=== PATIENT | female | born 1955 | race Caucasian/White ===

== ENCOUNTER 2016-05-27 21:41 | Emergency (ER) | payer OTHER ==
[2016-05-27 21:51] VITALS: BP 131/87; PULSE 82; RESP 16; TEMP 98.8; O2SAT 98
--- NOTE | 2016-05-27 22:40 | EDPHY ---
H & P Stated Complaint: preexisting L leg rash getting worse, unable to reach dermo for steroid ref Time Seen by Provider: 05/27/16 22:16 HPI/ROS: Chief Complaint: Leg lesions and itching HPI: 61-year-old woman with a history of chronic dermatitis and leg itching presenting with worsening excoriations and itching of her left leg. Patient states that she has run out of her triamcinolone ointment. She states that she has this is all stems from an incidental when she was exposed to bleach on her hands several years ago. She currently does see a presentation manager but has been unable to get in to get a refill of her prescription. She says she has had increasing itching despite topical treatments. It is not the worst it has ever been. No fevers or chills. No tracking up her leg. ROS: 10 point Review of Systems is negative except as noted in the HPI. PMH: Chronic dermatitis Social History: No smoking, no alcohol, no recreational drug use Family History: non-contributory Physical Exam: General: Awake, alert, no acute distress Left leg: She has got multiple areas of excoriation secondary to scratching. There is scant surrounding erythema which is non confluent. There is no purulent discharge or signs of infection. Normal perfusion - Personal History Current Tetanus/Diphtheria Vaccine: No Current Tetanus Diphtheria and Acellular Pertussis (TDAP): No - Medical/Surgical History Hx Asthma: No Hx Chronic Respiratory Disease: No Hx Diabetes: No Hx Cardiac Disease: No Hx Renal Disease: No Hx Cirrhosis: No Hx Alcoholism: No Hx HIV/AIDS: No Hx Splenectomy or Spleen Trauma: No Other PMH: vascular insufficiency, osteopenia - Social History Smoking Status: Never smoked Constitutional: Initial Vital Signs Temperature (C) 37.1 C 05/27/16 21:43 Heart Rate 82 05/27/16 21:43 Respiratory Rate 16 05/27/16 21:43 Blood Pressure 131/87 H 05/27/16 21:43 O2 Sat (%) 98 05/27/16 21:43 O2 Delivery Mode Room Air Allergies/Adverse Reactions: Penicillins Allergy (Verified 05/27/16 21:51) Home Medications: Medication Instructions Recorded TRIAMCINOLONE ACETONIDE 05/27/16 Triamcinolone 0.025% 1 azalea TP BID #1 crtube 04/14/17 [Triamcinolone 0.025% cream (*)] Medical Decision Making ED Course/Re-evaluation: Patient has an exacerbation of her dermatitis with multiple abrasion excoriations of the skin secondary to scratching. I have suggested topical Benadryl and will write her prescription for triamcinolone ointment which she normally uses twice a day. She will follow up with presentation manager early next week. She will return for any signs of infection including purulent discharge, increasing redness, streaking up her leg, fevers, chills, or any other concerns. Departure - Departure Disposition: Home, Routine, Self-Care Clinical Impression: Abrasion, Itching Condition: Good Instructions: Abrasion (ED), Itchy Skin (ED) Additional Instructions: The my apply triamcinolone ointment twice a day. Can use topical Benadryl ointment for itching as well. Follow up with presentation manager in 3-4 days for re-evaluation. Referrals: Kell Patterson MD [Primary Care Provider] - As per Instructions Prescriptions: Triamcinolone 0.025% [Triamcinolone 0.025% cream (*)] 1 azalea TP BID #1 crtube
== END 2016-05-27 22:40 | disposition home or self-care (01) ==
DX: S80.812A Abrasion, left lower leg, initial encounter (principal); L29.9 Pruritus, unspecified; X58.XXXA Exposure to other specified factors, initial encounter